=== PATIENT | female | born 1955 | race African-American/Black ===

== ENCOUNTER 2019-08-08 16:41 | Inpatient (IN) ==
[2019-08-08] MEDS ORDERED: NS 1,000 ML IV ONE (16:55)
[2019-08-08] MEDS ORDERED: D50W SYRINGE IV PRN (16:55)
[2019-08-08 17:22] LABS: ALLEN TEST YES; BE 1.5 mmoll (-3.0-3.0); BLOOD TYPE ARTERIAL; METHB 1.3 % (0.0-1.5); O2(CT) 17.7 mL/dL (15.0-23.0); O2HB 93.3 % (95.0-99.0); PCO2(98.6) 43 mmHg (35-45); PO2(98.6) 70 mmHg (60-100); SAMPLE BLOOD; SAO2 96.6 % (95.0-100.0); THB 13.5 g/dL (11.5-17.4)
[2019-08-08 17:24] LABS: MODALITY ROOM AIR
[2019-08-08 17:32] LABS: HEMATOCRIT 38.1 % (37.0-47.0); HEMOGLOBIN 12.6 g/dL (12.0-16.0); MCH 26.9 PG (27-31); MCHC 33.1 g/dL (33-37); MCV 81.2 FL (81-99); MPV 8.7 FL (7.4-10.4); RBC 4.69 XMIL (4.2-5.4); RDW 13.6 % (11.5-14.5); WBC 7.46 X1000 (4.8-10.8)
[2019-08-08] MEDS: NS 1,000 ML IV SCH ×3 (17:39→22:54)
[2019-08-08 17:52] LABS: ACETONE SERUM NEGATIVE (NEGATIVE)
[2019-08-08 18:08] LABS: URINE SOURCE CLEAN CATCH
[2019-08-08 18:09] LABS: AGAP 14; ALB/GLOB RATIO 1.4; ALBUMIN 4.3 g/dL (3.5-5.0); ALKALINE PHOSPHATASE 86 U/L (32-104); BUN 27 mg/dL (8-22); CALCIUM 10.1 mg/dL (8.8-10.2); CHLORIDE 90 mmol/L (98-107); CK PROFILE 175 U/L (24-173); COSMO 294; CREATININE 1.6 mg/dL (0.5-0.9); ESTIMATED GFR 39; GOT 16 U/L (10-30); GPT 16 U/L (10-36); MAGNESIUM 1.7 mg/dL (1.5-2.7); PHOSPHORUS 3.7 mg/dL (2.7-4.5); POTASSIUM 4.2 mmol/L (3.5-5.1); SODIUM 129 mmol/L (136-145); TCO2 25 mmol/L (25-35); TOTAL BILIRUBIN 0.46 mg/dL (0.20-1.00); TOTAL PROTEIN 7.4 g/dL (6.3-8.3)
[2019-08-08 18:10] LABS: GLUCOSE 647 mg/dL (70-104)
[2019-08-08 18:14] LABS: BILIRUBIN URINE NEGATIVE (NEGATIVE); BLOOD URINE NEGATIVE (NEGATIVE); COLOR STRAW; GLUCOSE URINE >1000 mg/dL (NEGATIVE); KETONE URINE NEGATIVE (NEGATIVE); LEUKOCYTES URINE NEGATIVE (NEGATIVE); NITRITE URINE NEGATIVE (NEGATIVE); PH URINE 6.5; PROTEIN URINE TRACE mg/dL (NEGATIVE); SP GRAVITY URINE 1.018; TURBIDITY URINE CLEAR (CLEAR); UR EPITHELIAL CELLS <10 /HPF (<10); URINE BACTERIA NEGATIVE /HPF; URINE RBC <10 /HPF (<10); URINE WBC <10 /HPF (<10); UROBILINOGEN URINE NORMAL (NORMAL)
[2019-08-08] MEDS ORDERED: HUMULIN R IV ONE ×3 (18:14→23:45)
--- NOTE | 2019-08-08 18:16 | Diag Imaging Result Doc PS360 ---
EXAM: CHEST-2 VIEWS 08/08/2019 HISTORY: ams, poss dka TECHNIQUE: AP and lateral chest COMMENT: There is cardiomegaly and increased pulmonary vascularity. There is obscuration of the retrocardiac portion of the left lower lobe. These findings were also present on 08/07/2019. IMPRESSION: Cardiomegaly. Atelectasis versus pneumonia left lower lobe. Electronically signed by Jan Blanco 08/08/2019 6:14 PM
[2019-08-08] MEDS ORDERED: CATAPRES PO ONE (18:23)
[2019-08-08] MEDS ORDERED: ROCEPHIN 1 GM in NS 50 ML IV ONE (18:24)
[2019-08-08 18:42] LABS: CK INDEX 0.7 (0.0-2.5); CK-MB 1.15 ng/mL (0.0-5.0)
[2019-08-08 18:44] LABS: UR AMPHETAMINES QUAL NONE DETECTED (NONE DETECT); UR BARBITUATES QUAL NONE DETECTED (NONE DETECT); UR BENZODIAZEPIN QUAL NONE DETECTED (NONE DETECT); UR CANNABINOIDS QUAL NONE DETECTED (NONE DETECT); UR COCAINE QUAL NONE DETECTED (NONE DETECT); UR METHADONE QUAL NONE DETECTED (NONE DETECT); UR OPIATES QUAL NONE DETECTED (NONE DETECT); UR OXYCODONE QUAL NONE DETECTED (NONE DETECT); UR PCP QUAL NONE DETECTED (NONE DETECT)
--- NOTE | 2019-08-08 19:19 | PROVIDER DOCUMENTATION ---
This chart was entered by Miracle Bermeo Scribe, acting as scribe for Igor Bronson CRNP. HPI-General Adult - General Chief Complaint: High Blood Sugar Stated Complaint: AMS Time Seen by Provider: 08/08/19 16:54 Source: family Allergies/Adverse Reactions: Patient Allergies Allergy/AdvReac Type Severity Reaction Status Date / Time morphine Allergy Unknown Verified 08/08/19 16:57 Penicillins Allergy HIVES Verified 08/08/19 16:57 amoxicillin AdvReac RASH Verified 08/08/19 16:57 Home Medications: Home Medication List Medication Instructions Recorded Confirmed Last Taken Type Albuterol Sulfate [Proair Hfa] 8.5 gm IH DAILY 03/25/14 08/08/19 1 Week Ago History ~08/01/19 Cholecalciferol (Vit D3) [Vitamin 5,000 unit PO DAILY 08/26/17 08/08/19 1 Week Ago History D] ~08/01/19 Febuxostat [Uloric] 40 mg PO DAILY 08/26/17 08/08/19 1 Week Ago History ~08/01/19 Gabapentin E.r. [Gralise] 300 mg PO DAILY 08/26/17 08/08/19 1 Week Ago History ~08/01/19 Glimepiride 2 mg PO DAILY 08/26/17 08/08/19 07/31/19 History Losartan/Hydrochlorothiazide 1 each PO DAILY 08/26/17 08/08/19 07/31/19 History [Losartan-Hctz 100-25 mg Tab] ROSUVAstatin [Crestor] 20 mg PO QHS 08/26/17 08/08/19 1 Day Ago History ~08/07/19 Amlodipine [Norvasc] 5 mg PO BID #60 tab 08/29/17 08/08/19 08/08/19 Rx Carvedilol [Coreg] 6.25 mg PO BID #0 08/29/17 08/08/19 08/08/19 Rx Ergocalciferol (Vitamin D2) 50,000 unit PO Q7D #5 cap 08/29/17 08/08/19 1 Week Ago Rx [Vitamin D] ~08/01/19 Losartan/Hctz [Hyzaar 100/12.5 mg 1 ea PO DAILY #1 tab 08/07/19 08/08/19 1 Week Ago Rx Tab] ~08/01/19 Insulin Glargine,Hum.rec.anlog 20 unit SQ QHS 08/08/19 08/08/19 Unknown History [Keila Dickerson] - History of Present Illness -Gen Adult Nature of Presenting Problems: Patient is a 64 year old female who presents to the ED via EMS with elevated blood sugar. EMS states patient's blood sugar was greater than 500. Patient's family states patient has not been taking her insulin. Family reports patient started to be drowsy and confused around 1100 today. Pt and family very poor historians. Location of Pain/Injury: reports: none Quality of Pain: reports: none Severity: reports: mild Onset/Duration: reports: this afternoon (1100) Timing: reports: still present Context/Activities at Onset: reports: light activity Associated Symptoms: reports: other (drowsy and confused) Similar Symptoms Previously?: No Recently seen or treated by another doctor?: Yes - Diabetes Related Context Context: reports: high blood sugar (greater than 500) Review of Systems - Adult - REVIEW OF SYSTEMS - ADULT ROS:: ROS per family Constitutional: reports: no symptoms reported Eyes: reports: no symptoms reported Ears, Nose, Mouth & Throat: reports: no symptoms reported Cardiovascular: reports: no symptoms reported Respiratory: reports: no symptoms reported Gastrointestinal: reports: no symptoms reported Genitourinary: reports: no symptoms reported Musculoskeletal: reports: no symptoms reported Integumentary: reports: no symptoms reported Neurological: reports: see HPI, other (drowsy and confused). denies: dizziness/vertigo, headache/migraines Psychiatric: reports: no symptoms reported Endocrine: reports: no symptoms reported Hematologic/Lymphatic: reports: no symptoms reported Allergic/Immunologic: reports: no symptoms reported All Other Systems: Reviewed and Negative Past History - Adult - PAST MEDICAL HISTORY-ADULT Review of Records: reports: Old Records Reviewed, Social history reviewed & non- contributory. Major Childhood Illnesses: reports: denies history Cardiovascular: reports: CHF, HTN, hyperlipidemia Respiratory: reports: asthma, sleep apnea, other (sleep apnea) Gastrointestinal: reports: denies history Obstetrical/Gynecological: reports: denies history Genitourinary: reports: denies history Musculoskeletal: reports: denies history Neurological: reports: denies history Endocrine/Immune: reports: Diabetes Other Conditions: reports: denies history - PRIOR SURGERIES/PROCEDURES Surgical/Procedure History: reports: - IMMUNIZATION STATUS Childhood Immunizations: See Nurse Assessment Flu Vaccine: See Nurse Assessment - FAMILY HISTORY Family History: reviewed, not pertinent - SOCIAL HISTORY Smoking: denies Substance Use: denies Living Situation: family Physical Exam-General - PHYSICAL EXAM-ADULT Initial Vital Signs Reviewed: Yes - CONSTITUTIONAL General Appearance: alert, no apparent distress, obese, slow to respond. negative: obtunded - EYES Eyes: PERRL/EOMI - HEAD, EARS, NOSE, MOUTH & THROAT HENMT: normocephalic/atraumatic, moist mucous membranes. negative: angioedema - NECK Neck: full range of motion, supple, normal inspection - RESPIRATORY Respiratory: chest non-tender, lungs clear, normal breath sounds, no respiratory distress, no accessory muscle use. negative: crackles, stridor, wheezing - CARDIOVASCULAR Cardiovascular: normal peripheral pulses, regular rate, rhythm. negative: tachycardia - GASTROINTESTINAL (ABDOMEN) Abdominal Exam: normal bowel sounds, non tender, soft. negative: guarding, rebound - MUSCULOSKELETAL Extremity: normal inspection. negative: deformity, erythema, swelling - SKIN Integumentary: normal color, normal turgor, warm/dry. negative: cyanosis, ecchymosis, jaundice - PSYCHIATRIC Psych/Mental Status: other (slow to respond). negative: anxious, paranoid Progress - PLAN OF CARE/RESULTS Progress/Plan/Lab Results: Vital Signs - 8 hr 08/08/19 16:48 Temperature 99.3 F Pulse Rate 78 Respiratory Rate 16 Blood Pressure 190/100 O2 Sat by Pulse Oximetry 96 Laboratory Results - last 24 hr 08/08/19 16:53 POC Glucose 500 H D Orders Category Date Time Status Cardiac Monitoring DIRECTED Care 08/08/19 16:55 Active FSBS/Accucheck Result Q15M Care 08/08/19 16:58 Active FSBS/Accucheck Result Q1H Care 08/08/19 16:55 Active Hypoglycemia/FSBS <50 or Range of 50-70 PRN Care 08/08/19 16:58 Active Notify Physician ORDERED Care 08/08/19 16:58 Active Saline Loc DIRECTED Care 08/08/19 16:58 Active Saline Loc NOW Care 08/08/19 16:55 Active Vital Signs Order Q1H Care 08/08/19 16:55 Active CHEST-2 VIEWS [RAD] Stat Exams 08/08/19 17:08 Ordered ABG [RESP] Routine Lab 08/08/19 16:55 Ordered ACETONE SERUM [CHEM] Stat Lab 08/08/19 16:55 Uncollected CBC WITH NO DIFF [HEME] Stat Lab 08/08/19 16:55 Uncollected CK PROFILE [SP CHEM] Stat Lab 08/08/19 16:55 Uncollected COMPREHENSIVE METABOLIC PANEL [CHEM] Stat Lab 08/08/19 16:55 Uncollected LACTATE, PLASMA [CHEM] Stat Lab 08/08/19 16:55 Uncollected MAGNESIUM [CHEM] Stat Lab 08/08/19 16:55 Uncollected PHOSPHORUS [CHEM] Stat Lab 08/08/19 16:55 Uncollected TROPONIN T Stat Lab 08/08/19 16:55 Uncollected URINALYSIS [URINALYSIS] Stat Lab 08/08/19 16:55 Uncollected URINE DRUG SCREEN Stat Lab 08/08/19 16:55 Uncollected 0.9% Sodium Chloride Inj [Ns] 1,000 ml Med 08/08/19 17:00 Active IV 500 mls/hr 0.9% Sodium Chloride Inj [Ns] 1,000 ml Med 08/08/19 16:55 Active IV 999 mls/hr Dextrose 50% Syringe [D50w Syringe] Med 08/08/19 16:55 Active 50 ml IV PRN PRN Hypoglycemia Stat Oth 08/08/19 16:55 Ordered EKG [EKG] Routine Ther 08/08/19 16:55 Ordered corrected sodium 137 Result Diagrams: 08/08/19 17:20 08/08/19 17:20 - REASSESSMENT Reassessment #1 Time Reassessed: 18:15 (discussed pt with Dr Bowles, agrees with tx plan thus far and suggests giving 10 units IV insulin and admit to hospitalist) Reassessment #2 Time Reassessed: 18:31 (updated pt and family of need for admission. ) - CONSULTS/PCP/HOSPITALIST Notification #1 *Consult/PCP/Hospitalist*: Dr Benjamin Time Discussed: 18:23 Consult Disposition: Will see in ED, Admit Departure - Departure Date of Disposition Decision: 08/08/19 Time of Disposition Decision: 18:25 DIAGNOSIS: Hyperglycemia, Hypertensive urgency, Noncompliance Altered mental state Qualifiers: Altered mental status type: unspecified Qualified Code(s): R41.82 - Altered mental status, unspecified Disposition: ADMITTED INPATIENT 09 Certified Medical Emergency: Emergent Condition: Fair Referrals and Follow-Ups: None,PCP [Primary Care Provider] - - Critical Care Note This patient required my direct & personal management of CC.: No Attestation - Physician/ THU Attestation Patient care was provided by Advanced Practice Provider:: Yes Advanced Practice Provider:: Igor Bronson Advanced Practice Provider documentation review:: The Mid-level provider documentation, treatment plan and medical decision making was reviewed by the physician who agrees with all treatment and medical decision making by the MLP. The physician spent face to face time with patient:: No Advanced Practice Provider documentation review:: Supervising physician onsite and consulted in the evaluation and care of this patient. The physician did not have a face to face encounter with the patient. This chart was documented by the indicated scribe, (Miracle Bermeo Scribe) and accurately reflects the services I performed and decisions made by me, Igor Bronson CRNP, as attested by the provider's signature.
[2019-08-08] MEDS ORDERED: POTASSIUM CHLORIDE 10% LIQUID PO ONE (19:30)
[2019-08-08] MEDS ORDERED: MAGNESIUM SULFATE 2 GM/S.W.I. 2 GM/50 ML IVPB IV ONE (20:00)
[2019-08-08 20:04] LABS: URINE SOURCE CATH
[2019-08-08 20:06] LABS: BILIRUBIN URINE NEGATIVE (NEGATIVE); BLOOD URINE NEGATIVE (NEGATIVE); COLOR STRAW; GLUCOSE URINE >1000 mg/dL (NEGATIVE); KETONE URINE NEGATIVE (NEGATIVE); LEUKOCYTES URINE NEGATIVE (NEGATIVE); NITRITE URINE NEGATIVE (NEGATIVE); PROTEIN URINE TRACE mg/dL (NEGATIVE); SP GRAVITY URINE 1.014; TURBIDITY URINE CLEAR (CLEAR); UROBILINOGEN URINE NORMAL (NORMAL)
[2019-08-08 20:07] LABS: UR EPITHELIAL CELLS <10 /HPF (<10); URINE BACTERIA NEGATIVE /HPF; URINE RBC <10 /HPF (<10); URINE WBC <10 /HPF (<10)
[2019-08-08] MEDS: LANTUS INSULIN SUBQ SCH (21:00)
[2019-08-08] MEDS: LEVAQUIN 500 MG/D5W 500 MG/100 ML IVPB IV SCH (21:21)
[2019-08-08] MEDS: HEPARIN SUBQ SCH (21:26)
[2019-08-08] MEDS: NORVASC PO SCH (21:27)
[2019-08-08] MEDS: HUMULIN R SUBQ SCH (21:42)
[2019-08-08] MEDS: APRESOLINE IV PRN (21:43)
--- NOTE | 2019-08-08 22:53 | HISTORY AND PHYSICAL ---
CHIEF COMPLAINT: Encephalopathy, right upper extremity weakness. HISTORY OF PRESENT ILLNESS: This is a 64-year-old female with a past medical history of uncontrolled hypertension, dyslipidemia, uncontrolled type 2 diabetes, medical noncompliance, morbid obesity. She presented to the emergency department yesterday with some signs of encephalopathy and right upper extremity weakness and some slurred speech. All the history has been taken from the , who is at the bedside. The patient is encephalopathic, and she is not able to provide any information. As per the , everything started 2 days ago during the night. Apparently, she started having some somnolence, slurred speech and right upper extremity weakness that resolved overnight. They decided to come here to the emergency department yesterday and apparently she was evaluated due to headache. The blood pressure was elevated, as per the report, at 235/138. She received treatment. Apparently she was feeling better, and they discharged this patient home. As per the , she started having this kind of symptoms today again, so they decided to bring the patient over here. Yesterday also they did a CT scan that did not show any acute problem. Her blood pressure today is still elevated, mostly in the 200s. Heart rate is within normal limits, as well as the oxygen saturation. Laboratories showed an acute kidney injury and elevated glucose level at 647. As per the , she ran out of her medications, and she was unable to afford them again. I had a tracey conversation with the about her medications. I told the that she can basically if she does not take her medications as prescribed, and he seems to understand. The first set of troponins has been negative, and I will check on that again twice. This patient is encephalopathic. I will send this patient to the intensive care unit. She is not following commands completely. It looks like she has a little bit of right upper extremity weakness. She received some clonidine in the emergency department, I will continue with her home medications. She will receive some fluids and sliding scale insulin. X-ray showed an atelectasis versus pneumonia at the level of the left lower lobe. She received a dose of ceftriaxone. Apparently, she is allergic to penicillin, so I will change it to levofloxacin. I will monitor this patient closely. REVIEW OF SYSTEMS: Unable able to obtain due to this patient's mental status changes. FAMILY HISTORY: Noncontributory. PAST MEDICAL HISTORY: Uncontrolled diabetes, uncontrolled hypertension, obesity, hypercholesterolemia and medical noncompliance. PAST SURGICAL HISTORY: Apparently none, as per the . SOCIAL HISTORY: None pertinent. PHYSICAL EXAMINATION: VITAL SIGNS: Temperature 99.3, pulse 81, respiratory rate 20, blood pressure 107/109, oxygen saturation 93% on room air. HEENT: Head normocephalic, no trauma. PERRLA. NECK: Supple. No JVD. No masses. Central trachea. CHEST: Decreased breath sounds globally mostly at the bases, with some crepitus on the left side. ABDOMEN: Soft, obese, protuberant. Nontender, nondistended. No hepatosplenomegaly. EXTREMITIES: No edema, clubbing or cyanosis. NEUROLOGICAL: The patient is basically lethargic. She is able to open her eyes, and she is able to say her name but no more than that. She is not following commands constantly. LABORATORY: WBCs 7.4, hemoglobin 12.6, hematocrit 38.1, platelets 306. Sodium 129, potassium 4.2, chloride 90, bicarbonate 25, BUN 27, creatinine 1.6, glucose 647, calcium 10.1, magnesium 1.7. Troponins negative x1. CK level 175. Negative acetone level. ASSESSMENT AND PLAN: 1. Metabolic encephalopathy. Probably this is multifactorial due to elevated blood sugar, hypertension inclusive. It could be related to a stroke. We need to rule out also an infection. She does have some atelectasis and/or pneumonia at the level of the left lower lung. She has been placed on antibiotics. We will continue to monitor the patient in the ICU. 2. Uncontrolled type 2 diabetes with no diabetes with no diabetic ketoacidosis. This patient will be transferred to the unit. We will check her blood sugar every 2 hours. She has been placed on a sliding scale and IV fluids. We will monitor this closely. 3. Uncontrolled hypertension. She received a dose of clonidine recently in the emergency department. I will put her on hydralazine and home medications. We will monitor this patient in the ICU. 4. Acute kidney injury on chronic kidney disease. It looks like her baseline creatinine is between 1 to 1.2 since 2013. She has an acute on chronic kidney disease. She will receive some IV fluids, and we will place a Gauthier catheter and monitor. 5. Possible left upper extremity weakness. It is really hard to evaluate this patient at this moment because of her encephalopathy, I will ask for a CT scan, and I will reevaluate this patient in the morning. If she has really a right upper extremity weakness or slurred speech, I will get an MRI to rule out stroke. 6. Dyslipidemia. Continue with statins. 7. Morbid obesity. Aware. Her body mass index is around 42.1. 8. Sleep apnea. Apparently this patient uses a CPAP machine at home. I have requested the , apparently this patient uses a CPAP machine at home. I have requested the family to bring this machine over. 9. Further recommendations pending hospital course. cc: Cristiano Carrasco MD
[2019-08-09] MEDS: COREG PO SCH ×3 (01:11→20:32)
[2019-08-09] MEDS: CRESTOR PO SCH ×2 (01:11→20:32)
[2019-08-09] MEDS: NORVASC PO SCH ×3 (01:11→20:32)
[2019-08-09] MEDS: TYLENOL PO PRN (01:15)
[2019-08-09] MEDS ORDERED: MAGNESIUM SULFATE 2 GM/S.W.I. 2 GM/50 ML IVPB IV ONE ×2 (04:00→07:27)
[2019-08-09 06:08] LABS: BASO# 0.02 X1000 (0.0-0.2); BASO% 0.2 % (0.0-0.8); HEMATOCRIT 35.6 % (37.0-47.0); HEMOGLOBIN 11.7 g/dL (12.0-16.0); IMM GRAN# 0.06 X1000 (0.0-0.04); IMM GRAN% 0.6 % (0.0-0.5); LYMPH# 3.14 X1000 (1.2-3.4); LYMPH% 32.2 % (20.5-51.1); MCH 26.8 PG (27-31); MCHC 32.9 g/dL (33-37); MCV 81.5 FL (81-99); MONO# 0.89 X1000 (0.11-0.59); MONO% 9.1 % (1.7-9.3); MPV 8.9 FL (7.4-10.4); NEUT# 5.55 X1000 (1.4-6.5); NEUT% 56.9 % (42.2-75.2); PLT 330 X1000 (130-400); RBC 4.37 XMIL (4.2-5.4); RDW 13.6 % (11.5-14.5); WBC 9.76 X1000 (4.8-10.8)
[2019-08-09 06:48] LABS: ALB/GLOB RATIO 1.2; ALBUMIN 3.6 g/dL (3.5-5.0); CALCIUM 8.7 mg/dL (8.8-10.2); CREATININE 1.3 mg/dL (0.5-0.9); MAGNESIUM 1.5 mg/dL (1.5-2.7); POTASSIUM 3.4 mmol/L (3.5-5.1); TOTAL BILIRUBIN 0.31 mg/dL (0.20-1.00); TOTAL PROTEIN 6.6 g/dL (6.3-8.3)
--- NOTE | 2019-08-09 07:18 | Diag Imaging Result Doc PS360 ---
EXAM: CT HEAD W/O CONTRAST INDICATION: encephalopathy TECHNIQUE: This exam was performed using automated exposure control, adjustment of mA or kV according to patient size, and/or use of iterative reconstruction technique. COMPARISON: 08/07/2019 FINDINGS: There is suggestion of minimal white matter microangiopathy, stable. There is no definite acute infarct given the limited sensitivity of CT versus MRI. There is no discrete intracranial mass, mass effect, or intracranial hemorrhage. The surrounding soft tissues and bony structures are essentially unremarkable. IMPRESSION: Stable minimal chronic appearing white matter changes. No definite acute intracranial pathology by CT. Electronically signed by Arun Rooney 08/09/2019 7:16 AM
[2019-08-09] MEDS ORDERED: KLOR-CON PO ONE (07:28)
--- NOTE | 2019-08-09 07:53 | PROGRESS NOTE ---
DATE: 08/09/2019 SUBJECTIVE: This patient seems to be remarkably better today. She is alert and oriented x3, and she is following commands. As per the patient she stopped taking her medications long time ago and that is why probably this patient's blood sugar and blood pressure were elevated. Troponin has been negative x3. Blood sugar seems to be much better as well as the blood pressure. Her pseudo hyponatremia improved. Potassium and magnesium level are low and I will replace it. She has a good urine output and her kidney function is close to baseline. BUN improved completely, creatinine is 1.3 down from 1.6. OBJECTIVE: Vital Signs: Temperature 98.3 degrees, pulse 81, respiratory rate 17, blood pressure 127/75, oxygen saturation 97% on room air. HEENT: Head normocephalic. No trauma. PERRLA. Neck: Supple. No JVD. No masses. Central trachea. Chest: Clear to auscultation. No wheezing. No rales. Abdomen: Soft, nontender, nondistended. No hepatosplenomegaly. Extremities: No edema, no clubbing, no cyanosis. Neurological: The patient is alert. She is oriented x3. She is following commands. She does have generalized weakness. LABORATORY: WBC 9.7, hemoglobin 11.7, hematocrit 35.6, platelets 333,000. Sodium 136, potassium 3.4, chloride 100, bicarbonate 24, BUN 19, creatinine 1.3, glucose 211, calcium 8.7. Troponins negative x3. TSH 2.6. Albumin 3.6. ASSESSMENT AND PLAN: 1. Metabolic encephalopathy, likely multifactorial, improved. She does not have any signs of stroke. CT scan seems to be negative. No acute intracranial pathology. She does have generalized weakness. 2. Uncontrolled type 2 diabetes,blood sugar seems to be much better. I will continue with same management for now. 3. Hypertensive emergency. Blood pressure normalized now. Continue with same management. Continue home medications which were stopped some time ago. 4. Acute kidney injury on chronic kidney disease. It looks like now she is close to her baseline. I will remove the Gauthier catheter now. She is having good urine output. 5. Possible left upper extremity weakness. She does not have any focal weakness at this moment. She does have generalized weakness, CT scan of the head is negative. 6. Dyslipidemia. Continue with statins. 7. Morbid obesity aware. Her body mass index is 42.9. 8. Sleep apnea. We will continue with the CPAP machine. This patient is doing much better. Probably all these acute problems were related to her noncompliance with the medications. I will remove the Gauthier catheter. I will put this patient on a diet. I will continue with sliding scale insulin and pattern of blood sugar. I will transfer this patient to the medical floor. I will get a hemoglobin A1c. cc: Cristiano Carrasco MD
[2019-08-09] MEDS: HUMULIN R SUBQ SCH ×4 (08:12→20:32)
[2019-08-09] MEDS: ULORIC PO SCH (08:14)
[2019-08-09] MEDS: HYZAAR 100/12.5 MG TAB PO SCH (08:14)
[2019-08-09] MEDS: HEPARIN SUBQ SCH ×2 (08:14→20:32)
[2019-08-09] MEDS: NS 1,000 ML IV SCH (13:52)
[2019-08-09] MEDS: LEVAQUIN 500 MG/D5W 500 MG/100 ML IVPB IV SCH (18:40)
[2019-08-09] MEDS: LANTUS INSULIN SUBQ SCH (20:33)
[2019-08-09] MEDS ORDERED: HUMULIN R SUBQ ONE (21:17)
--- NOTE | 2019-08-09 21:23 | ECHO REPORT ---
ORDER DATE: 08/08/2019 MEASUREMENTS: Septal thickness 1.7, left ventricular internal diameter diastole 3.8, left ventricular internal diameter in systole 2.8, aortic root 3.2, left atrium 3.4. SUMMARY: 1. Technically difficult study due to limited acoustic window quality. 2. Aortic valve is without evidence of structural abnormality and opens adequately on 2- dimensional images. Peak gradient across the aortic valve is less than 10 mmHg. Mitral and tricuspid valves are without evidence of structural abnormality while pulmonic valve is not well demonstrated. There is mild tricuspid regurgitation. The estimated systolic PA pressure by Doppler is 30 mmHg. Aortic root is normal in size. 3. Normal left chamber size with moderate concentric left hypertrophy is demonstrated. Estimated left ejection fraction approximately 40 to 45% in the setting of mild global hypokinesis. Doppler suggests grade 1 left ventricular diastolic dysfunction. Left atrium, right atrium, right ventricle are normal size with grossly preserved right ventricular systolic function. 4. No pericardial effusion. 5. Appearance of inferior vena cava suggests normal central venous pressure. CONCLUSIONS: 1. Technically difficult study. 2. Mild tricuspid regurgitation with normal systolic PA pressure suggested by Doppler. 3. Moderate concentric left hypertrophy with estimated left ventricular ejection fraction of 40 to 45 percent. 4. Grade 1 left ventricular diastolic dysfunction suggested. cc: MD Cristiano Barnett MD
[2019-08-10] MEDS: TYLENOL PO PRN ×2 (01:03→18:06)
[2019-08-10] MEDS: NS 1,000 ML IV SCH (04:35)
[2019-08-10 06:07] LABS: HEMOGLOBIN A1C 10.5 % (4.8-6.0)
[2019-08-10] MEDS: HUMULIN R SUBQ SCH ×4 (07:15→22:32)
[2019-08-10] MEDS: HEPARIN SUBQ SCH ×2 (07:59→22:33)
[2019-08-10] MEDS: HYZAAR 100/12.5 MG TAB PO SCH (07:59)
[2019-08-10] MEDS: NORVASC PO SCH ×2 (07:59→22:30)
[2019-08-10] MEDS: COREG PO SCH ×2 (07:59→22:31)
[2019-08-10] MEDS: ULORIC PO SCH (07:59)
--- NOTE | 2019-08-10 08:49 | PROGRESS NOTE ---
DATE: 08/10/2019 SUBJECTIVE: The patient is feeling better. She does have generalized weakness. She is tolerating p.o., so I will stop the IV fluids. I will put her back on the rest of her medications that she has been taking at home. She does have a systolic heart failure. She is on beta blockers and also I will continue with her losartan. OBJECTIVE: Vital Signs: Temperature 97.5 degrees, pulse 69, respiratory rate 14, blood pressure on the monitor 154/87, oxygen saturation 97% on room air. HEENT: Head normocephalic. No trauma. PERRLA. Neck: Supple. No JVD. No masses. Central trachea. Chest: Clear to auscultation. No wheezing. Some crepitus at the bases. Abdomen: Soft, nontender, nondistended. No hepatosplenomegaly. Extremities: No edema, no clubbing, no cyanosis. Neurological: The patient is alert. She is oriented x3. She does have generalized weakness. She is following commands. LABORATORY: Glucose 130. Hemoglobin A1c 10.5. ASSESSMENT AND PLAN: 1. Metabolic encephalopathy, likely multifactorial, improved. CT scan negative. 2. Uncontrolled type 2 diabetes, blood sugar seems to be better controlled. Continue with same management for now. Hemoglobin A1c is 10.5. 3. Acute kidney injury on chronic kidney disease. She is having a good urine output. I will put this patient back on her home medications. 4. Possible left upper extremity weakness, resolved. 5. Dyslipidemia. Continue with statins. 6. Morbid obesity with a body mass index of 42.9, aware. 7. Severe sleep apnea. Continue with the CPAP machine. DISPOSITION: The patient is feeling better. I offered rehab for her but she refused that possibility. She wants to go home. I have requested an evaluation by the social media intern to see if they can help with her medication, which seems to be the main problem. I will discharge this patient tomorrow if she is doing fine. cc: Cristiano Carrasco MD
[2019-08-10] MEDS ORDERED: VITAMIN D PO SCH ×2 (09:00)
[2019-08-10] MEDS ORDERED: HYZAAR 50/12.5 MG PO SCH (09:00)
[2019-08-10] MEDS: GRALISE PO SCH (10:49)
[2019-08-10] MEDS: AMARYL PO SCH (10:49)
[2019-08-10] MEDS: CRESTOR PO SCH (22:30)
[2019-08-10] MEDS: LEVAQUIN 500 MG/D5W 500 MG/100 ML IVPB IV SCH (22:36)
[2019-08-10] MEDS: LANTUS INSULIN SUBQ SCH (22:41)
[2019-08-11] MEDS: APRESOLINE IV PRN (02:55)
[2019-08-11] MEDS: TYLENOL PO PRN ×2 (03:08→14:26)
[2019-08-11] MEDS: HUMULIN R SUBQ SCH ×4 (06:16→21:49)
[2019-08-11] MEDS: ZOFRAN IV PRN ×3 (06:30→21:47)
[2019-08-11 07:03] LABS: BASO# 0.03 X1000 (0.0-0.2); BASO% 0.5 % (0.0-0.8); EOS# 0.12 X1000 (0.0-0.7); HEMATOCRIT 41.2 % (37.0-47.0); HEMOGLOBIN 13.5 g/dL (12.0-16.0); IMM GRAN# 0.04 X1000 (0.0-0.04); IMM GRAN% 0.7 % (0.0-0.5); LYMPH# 1.69 X1000 (1.2-3.4); LYMPH% 27.7 % (20.5-51.1); MCH 26.9 PG (27-31); MCHC 32.8 g/dL (33-37); MCV 82.2 FL (81-99); MONO% 8.2 % (1.7-9.3); MPV 8.7 FL (7.4-10.4); NEUT# 3.73 X1000 (1.4-6.5); NEUT% 60.9 % (42.2-75.2); PLT 313 X1000 (130-400); RBC 5.01 XMIL (4.2-5.4); RDW 13.9 % (11.5-14.5); WBC 6.11 X1000 (4.8-10.8)
[2019-08-11 07:22] LABS: AGAP 15; ALB/GLOB RATIO 1.1; ALBUMIN 3.8 g/dL (3.5-5.0); ALKALINE PHOSPHATASE 75 U/L (32-104); BUN 13 mg/dL (8-22); CALCIUM 9.8 mg/dL (8.8-10.2); CHLORIDE 100 mmol/L (98-107); COSMO 285; ESTIMATED GFR > 60; GLUCOSE 266 mg/dL (70-104); GOT 20 U/L (10-30); GPT 13 U/L (10-36); POTASSIUM 3.6 mmol/L (3.5-5.1); SODIUM 138 mmol/L (136-145); TCO2 23 mmol/L (25-35); TOTAL BILIRUBIN 0.34 mg/dL (0.20-1.00); TOTAL PROTEIN 7.3 g/dL (6.3-8.3)
--- NOTE | 2019-08-11 09:05 | PROGRESS NOTE ---
DATE: 08/11/2019 SUBJECTIVE: This patient is complaining of nausea and vomiting today, her blood pressure has been now elevated since yesterday afternoon. It has been mostly in the 150s. I will add hydralazine to her medications to see how she does. Also, I will increase the dose of the insulin, Lantus. OBJECTIVE: Vital Signs: Temperature 98.2 degrees, pulse 95, respiratory rate 18, blood pressure 153/97, oxygen saturation 96 on room air. HEENT: Head normocephalic. No trauma. PERRLA. Neck: Supple. No JVD. No masses. Central trachea. Chest: Clear to auscultation. No wheezing. No rales. Abdomen: Soft, nontender, nondistended. No hepatosplenomegaly. Extremities: No edema, no clubbing, no cyanosis. Neurologic: The patient is alert. She is oriented x3. No focal deficits. She is complaining of headache. LABORATORY: WBC 6.1, hemoglobin 13.5, hematocrit 41.2, platelets 313,000. Sodium 138, potassium 3.6, chloride 100, bicarbonate 23, BUN 13, creatinine 1, glucose 266. Calcium 9.8. ASSESSMENT AND PLAN: 1. Metabolic encephalopathy, resolved, likely multifactorial. CT scan of the head negative. 2. Uncontrolled type 2 diabetes with a hemoglobin A1c of 10.5, I have increased the dose of Lantus from 20 to 30 and let's see how she does. 3. Acute kidney injury on chronic kidney disease, resolved. She is having a good urine output. I have placed this patient back on her home medications. 4. Possible left upper extremity weakness, resolved. 5. Dyslipidemia. Continue with statins. 6. Hypertensive urgency, resolved. 7. She came in encephalopathic and also with acute on chronic kidney disease. Blood pressure seems to be better, but still a little bit elevated. I will add hydralazine to her medications. 8. Severe sleep apnea. Continue with CPAP machine. cc: Cristiano Carrasco MD
[2019-08-11] MEDS ORDERED: PNEUMOVAX 23 IM ONE (10:00)
[2019-08-11] MEDS: AMARYL PO SCH (10:25)
[2019-08-11] MEDS: GRALISE PO SCH (10:25)
[2019-08-11] MEDS: HYZAAR 100/12.5 MG TAB PO SCH (10:25)
[2019-08-11] MEDS: COREG PO SCH ×2 (10:25→21:48)
[2019-08-11] MEDS: HEPARIN SUBQ SCH ×2 (10:26→21:48)
[2019-08-11] MEDS: NORVASC PO SCH ×2 (10:26→21:48)
[2019-08-11] MEDS: APRESOLINE PO SCH ×3 (10:27→21:48)
[2019-08-11] MEDS: ULORIC PO SCH (10:27)
[2019-08-11] MEDS ORDERED: ULTRAM PO ONE (13:41)
[2019-08-11] MEDS: LEVAQUIN 500 MG/D5W 500 MG/100 ML IVPB IV SCH (17:53)
[2019-08-11] MEDS ORDERED: LANTUS INSULIN SUBQ SCH (21:00)
[2019-08-11] MEDS: CRESTOR PO SCH (21:48)
[2019-08-11] MEDS: LANTUS INSULIN SUBQ SCH (21:49)
[2019-08-12] MEDS: APRESOLINE PO SCH ×4 (05:21→23:21)
[2019-08-12 06:35] LABS: BASO# 0.02 X1000 (0.0-0.2); BASO% 0.3 % (0.0-0.8); EOS# 0.13 X1000 (0.0-0.7); HEMATOCRIT 42.4 % (37.0-47.0); HEMOGLOBIN 13.8 g/dL (12.0-16.0); IMM GRAN# 0.03 X1000 (0.0-0.04); IMM GRAN% 0.5 % (0.0-0.5); LYMPH# 1.89 X1000 (1.2-3.4); MCH 26.7 PG (27-31); MCHC 32.5 g/dL (33-37); MCV 82.2 FL (81-99); MONO# 0.61 X1000 (0.11-0.59); MONO% 9.4 % (1.7-9.3); MPV 8.6 FL (7.4-10.4); NEUT# 3.84 X1000 (1.4-6.5); NEUT% 58.8 % (42.2-75.2); PLT 323 X1000 (130-400); RBC 5.16 XMIL (4.2-5.4); RDW 14.1 % (11.5-14.5); WBC 6.52 X1000 (4.8-10.8)
[2019-08-12 06:59] LABS: CALCIUM 9.9 mg/dL (8.8-10.2); CREATININE 1.3 mg/dL (0.5-0.9); POTASSIUM 3.7 mmol/L (3.5-5.1)
[2019-08-12] MEDS: HUMULIN R SUBQ SCH ×4 (07:31→23:20)
[2019-08-12] MEDS: AMARYL PO SCH (10:00)
[2019-08-12] MEDS: GRALISE PO SCH (10:00)
[2019-08-12] MEDS: NORVASC PO SCH ×2 (10:00→23:21)
[2019-08-12] MEDS: COREG PO SCH ×2 (10:00→23:21)
[2019-08-12] MEDS: HYZAAR 100/12.5 MG TAB PO SCH (10:00)
[2019-08-12] MEDS: ULORIC PO SCH (10:00)
[2019-08-12] MEDS: HEPARIN SUBQ SCH ×2 (10:00→23:22)
[2019-08-12] MEDS: TYLENOL PO PRN (11:53)
--- NOTE | 2019-08-12 12:00 | PROGRESS NOTE ---
DATE: 08/12/2019 SUBJECTIVE: This patient is still complaining of some nausea, but she feels better compared with yesterday. I will continue with the same management for now. She seems to be getting better slowly. Blood culture and urine culture negative. Glucose level seems to be better today. PHYSICAL EXAMINATION: Vital signs: Temperature 98 degrees, pulse 77, respiratory rate 18, blood pressure 143/79, oxygen saturation 100% on room air HEENT: Head normocephalic, no trauma, PERRLA. Neck: Supple. No JVD. No masses. Central trachea. Chest: Clear to auscultation. No wheezing. No rales. Abdomen: Soft, nontender, nondistended. No hepatosplenomegaly. Extremities: No edema, no clubbing, no cyanosis. Neurological: The patient is alert, she is oriented. No focal deficits. LABORATORY: WBC 6.5, hemoglobin 13.8, hematocrit 42.4, platelets 223,000. Sodium 133, potassium 3.7, chloride 96, bicarbonate 23, BUN 16, creatinine 1.3, glucose 204, calcium 9.9. ASSESSMENT AND PLAN: 1. Metabolic encephalopathy, resolved, likely multifactorial. CT scan of the head negative. 2. Uncontrolled type 2 diabetes with a hemoglobin A1c of 10.5, continue with Lantus. 3. Acute kidney injury on chronic kidney disease, resolved. She is having good urine output. 4. Possible left upper extremity weakness, resolved. 5. Dyslipidemia. Continue with statins. 6. Hypertensive urgency, resolved. 7. She came in encephalopathic and also with acute on chronic kidney disease. Blood pressure seems to be better. I started hydralazine yesterday. We will continue to monitor. 8. Severe sleep apnea. Continue with the CPAP machine. cc: Cristiano Carrasco MD
[2019-08-12] MEDS: LEVAQUIN 500 MG/D5W 500 MG/100 ML IVPB IV SCH (17:44)
[2019-08-12] MEDS: LANTUS INSULIN SUBQ SCH (23:20)
[2019-08-12] MEDS: CRESTOR PO SCH (23:22)
[2019-08-13] MEDS: TYLENOL PO PRN ×3 (02:37→23:18)
[2019-08-13] MEDS: APRESOLINE PO SCH ×3 (04:37→22:58)
[2019-08-13] MEDS: HUMULIN R SUBQ SCH ×4 (06:51→22:57)
[2019-08-13 07:27] LABS: CALCIUM 9.4 mg/dL (8.8-10.2); CREATININE 1.6 mg/dL (0.5-0.9); POTASSIUM 3.9 mmol/L (3.5-5.1)
[2019-08-13] MEDS: ULORIC PO SCH (09:39)
[2019-08-13] MEDS: HEPARIN SUBQ SCH ×2 (09:39→22:58)
[2019-08-13] MEDS: AMARYL PO SCH (09:39)
[2019-08-13] MEDS: NORVASC PO SCH ×2 (09:39→22:58)
[2019-08-13] MEDS: GRALISE PO SCH (09:39)
[2019-08-13] MEDS: COREG PO SCH ×2 (09:39→22:58)
[2019-08-13] MEDS: HYZAAR 100/12.5 MG TAB PO SCH (09:39)
--- NOTE | 2019-08-13 16:57 | PROGRESS NOTE ---
DATE: 08/13/2019 SUBJECTIVE: This patient's is complaining today of headache and more generalized weakness, mild nausea. Blood pressure and blood sugar has been better controlled. Still a little bit above 200, and she received yesterday around 14 more units of insulin. I do believe it is safe to increase the dose of Lantus from 30 to 35 and we can check on her tomorrow. Also her kidney function has been increasing as well as the BUN. She has been on losartan/hydrochlorothiazide which I will hold for now. She does not have any edema at the level of the lower extremities, but she states that sometimes she does. We will need to put her back on NATHALIE inhibitors or arbs before discharge. Probably we can change it to a low dose since this patient has CHF with an ejection fraction of 40 to 45 percent. OBJECTIVE: Vital Signs: Temperature 98.1 degrees, pulse 81, respiratory rate 16, blood pressure 122/67, oxygen saturation 99 on room air. HEENT: Head normocephalic, no trauma. PERRLA. Neck: Supple. No JVD. No masses. Central trachea. Chest: Clear to auscultation. No wheezing. No rales. Abdomen: Soft. Mild tenderness to palpation at the level of the epigastric area. No hepatosplenomegaly. Extremities: No edema, no clubbing, no cyanosis. Neurological: The patient is alert she is oriented. Her answers are slow but appropriate. She is complaining of headache, no double vision. LABORATORY: Sodium 130, potassium 3.9, chloride 92, bicarbonate 25, BUN 23, creatinine 1.6, glucose 239, calcium 9.4. ASSESSMENT AND PLAN: 1. Metabolic encephalopathy, multifactorial, resolved. We have a couple CT scans of the head have been negative. 2. Uncontrolled type 2 diabetes with a hemoglobin A1c of 10.5. Continue with Lantus, which I will increase to 35. 3. Acute kidney injury on chronic kidney disease, a BUN and creatinine are trending up again, I have restarted her losartan/ hydrochlorothiazide 3 days ago, probably we need to stop the hydrochlorothiazide, and put her on a low dose of NATHALIE inhibitors or arbs upon discharge. She does have heart failure, systolic. She is already on beta blockers and statin. 4. Congestive heart failure without exacerbation, ejection fraction 40 to 45 percent, continue with the same management. Hopefully we will discharge this patient with a low dose of NATHALIE inhibitors or arbs, she has been on losartan/ hydrochlorothiazide, but her kidney function is getting worse, so probably we need to stop the hydrochlorothiazide, and continue only with the arbs. 5. Dyslipidemia, continue with statins. 6. Left upper extremity weakness upon admission, resolved. 7. Hypertensive emergency, resolved. 8. Severe sleep apnea continue with the CPAP machine. cc: Cristiano Carrasco MD
[2019-08-13] MEDS: LEVAQUIN 500 MG/D5W 500 MG/100 ML IVPB IV SCH (17:43)
[2019-08-13] MEDS: LANTUS INSULIN SUBQ SCH (22:56)
[2019-08-13] MEDS: CRESTOR PO SCH (22:58)
[2019-08-14] MEDS: APRESOLINE PO SCH ×3 (05:46→21:07)
[2019-08-14] MEDS: HUMULIN R SUBQ SCH ×4 (06:43→21:08)
[2019-08-14 06:51] LABS: BASO# 0.02 X1000 (0.0-0.2); BASO% 0.3 % (0.0-0.8); EOS# 0.11 X1000 (0.0-0.7); EOS% 1.7 % (0.0-10.0); HEMOGLOBIN 12.2 g/dL (12.0-16.0); IMM GRAN# 0.03 X1000 (0.0-0.04); IMM GRAN% 0.5 % (0.0-0.5); LYMPH# 1.59 X1000 (1.2-3.4); LYMPH% 24.9 % (20.5-51.1); MCH 26.8 PG (27-31); MCHC 32.1 g/dL (33-37); MCV 83.3 FL (81-99); MONO# 0.67 X1000 (0.11-0.59); MONO% 10.5 % (1.7-9.3); MPV 9.1 FL (7.4-10.4); NEUT# 3.97 X1000 (1.4-6.5); NEUT% 62.1 % (42.2-75.2); PLT 328 X1000 (130-400); RBC 4.56 XMIL (4.2-5.4); RDW 14.1 % (11.5-14.5); WBC 6.39 X1000 (4.8-10.8)
[2019-08-14 07:23] LABS: CALCIUM 9.1 mg/dL (8.8-10.2); CREATININE 1.9 mg/dL (0.5-0.9); PHOSPHORUS 3.2 mg/dL (2.7-4.5); POTASSIUM 3.9 mmol/L (3.5-5.1)
[2019-08-14] MEDS: COREG PO SCH ×2 (08:57→21:07)
[2019-08-14] MEDS: NORVASC PO SCH ×2 (08:57→21:07)
[2019-08-14] MEDS: GRALISE PO SCH (08:57)
[2019-08-14] MEDS: HEPARIN SUBQ SCH ×2 (08:57→21:08)
[2019-08-14] MEDS: ULORIC PO SCH (08:57)
[2019-08-14] MEDS: AMARYL PO SCH (08:57)
--- NOTE | 2019-08-14 09:35 | PROGRESS NOTE ---
DATE: 08/14/2019 SUBJECTIVE: Ms. Benitez is a 64-year-old. She has no primary care physician. Presented with encephalopathy, right upper extremity cramping and weakness. She states that her right hand is much better. She is alert and oriented x3 now. OBJECTIVE: Vital Signs: Temp 98.4 degrees, pulse 85, respirations 16, blood pressure 123/67. HEENT: Pupils are equal and round. Lungs: Clear in all lung adams. Cardiovascular: Regular rhythm and rate without murmur or S3. Abdomen: Soft. Skin: Warm and dry. Urine output was 3100 mL. Blood sugars 240, 272, 235. ASSESSMENT AND PLAN: 1. Metabolic encephalopathy, multifactorial, it is resolved. She has had a couple CTs of her head, and they are all negative. 2. Uncontrolled diabetes. Hemoglobin A1c was 10.5. Continue Lantus, increase to 35, and she may need to be on 70/30, and may start that as well. 3. Acute kidney injury on chronic kidney disease. BUN and creatinine are trending up again. Started her on losartan and hydrochlorothiazide 3 days ago. Will stop the hydrochlorothiazide, put her on low dose of angiotensin-converting enzyme inhibitor. 4. Congestive heart failure exacerbation. Ejection fraction is 40% to 45%. She has congestive heart failure with mildly reduced ejection fraction. Hope to get the patient on low-dose angiotensin-converting enzyme inhibitor. 5. Dyslipidemia, on statins. 6. Right upper extremity hand weakness on admission, and cramping. This is resolved. 7. Hypertensive emergency, which resolved. Blood pressure under better control. REVIEW OF ORDERS: Looking over orders, she is on Lantus insulin 35 units at bedtime, and I think she would benefit from 70/30 twice a day, so will try that. cc: Manohar Chavez MD
[2019-08-14] MEDS: LEVAQUIN 500 MG/D5W 500 MG/100 ML IVPB IV SCH (18:32)
[2019-08-14] MEDS: CRESTOR PO SCH (21:07)
[2019-08-14] MEDS: HUMULIN 70/30 SUBQ SCH (21:08)
[2019-08-14] MEDS: LANTUS INSULIN SUBQ SCH (21:09)
[2019-08-15] MEDS: APRESOLINE PO SCH ×3 (06:38→21:15)
[2019-08-15] MEDS: HUMULIN R SUBQ SCH ×4 (06:38→21:16)
[2019-08-15] MEDS: AMARYL PO SCH (09:39)
[2019-08-15] MEDS: NORVASC PO SCH ×2 (09:39→21:15)
[2019-08-15] MEDS: ULORIC PO SCH (09:39)
[2019-08-15] MEDS: HEPARIN SUBQ SCH ×2 (09:39→21:15)
[2019-08-15] MEDS: GRALISE PO SCH (09:40)
[2019-08-15] MEDS: COREG PO SCH ×2 (09:40→21:15)
[2019-08-15] MEDS: HUMULIN 70/30 SUBQ SCH ×2 (09:40→21:16)
[2019-08-15] MEDS ORDERED: MILK OF MAGNESIA PO ONE (09:48)
[2019-08-15] MEDS ORDERED: DULCOLAX PR ONE (09:49)
[2019-08-15] MEDS: MIRALAX PO SCH (10:31)
--- NOTE | 2019-08-15 15:43 | PROGRESS NOTE ---
DATE: 08/15/2019 SUBJECTIVE: Ms. Benitez says she is feeling better. She is still pretty weak. I would like to do a little walking around, but overall is eating. Her bowels have not moved yet. OBJECTIVE: Vital signs: Temp 98.5 degrees, pulse 78, respirations 20, blood pressure 137/72. HEENT: Pupils are equal and round. Lungs: Clear in all lung adams. Cardiovascular: Regular rhythm and rate without murmur or S3. Abdomen: Soft. Skin: Warm and dry. Urine output was 4700 mL. ASSESSMENT AND PLAN: 1. Metabolic encephalopathy, multifactorial. This has resolved. Had a couple CTs of her head on this admission, they were negative. 2. Uncontrolled diabetes. Sugars appear to be doing much better and they are in the low 200s. We will continue her present insulin. 3. Acute kidney injury on top of chronic kidney injury. Her chemistries, last creatinine was 1.9 and I think we will check it again tomorrow. 4. Congestive heart failure, ejection fraction 40 to 45%. Appears to be well compensated. Mildly reduced ejection fraction. She is on low-dose angiotensin inhibitor. 5. Dyslipidemia. On statins. 6. Right upper extremity hand weakness on the right with cramping. 7. Hypertensive emergency on admission. Blood pressure well controlled. REVIEW OF MEDICATION: She did receive the Pneumovax 23 Valent. She is on Lantus insulin 35 units at bedtime and she is on 70/30 Humulin 12 units twice a day. She takes Crestor 20 mg a day, hydralazine 25 mg p.o. q.8 hours, Coreg 6.25 mg b.i.d., Uloric 40 mg a day, vitamin D2 19440 units daily. She is on low-dose heparin at 5000 units subcu q.12 for DVT prophylaxis. Getting Levaquin 500 mg IV q.24 hours, MiraLAX 17 g daily, and losartan Hyzaar combination 1 a day. Hopefully can be discharged tomorrow. She has physical therapy and occupational therapy involved. cc: Manohar Chavez MD
[2019-08-15] MEDS: LEVAQUIN PO SCH ×2 (15:59→17:19)
[2019-08-15] MEDS: CRESTOR PO SCH (21:15)
[2019-08-15] MEDS: LANTUS INSULIN SUBQ SCH (21:16)
[2019-08-15] MEDS ORDERED: INSULIN PEN NEEDLES ONE (21:21)
[2019-08-16] MEDS: HUMULIN R SUBQ SCH ×2 (06:27→10:59)
[2019-08-16] MEDS: APRESOLINE PO SCH ×2 (06:43→12:34)
[2019-08-16] MEDS: AMARYL PO SCH ×2 (07:45→09:48)
[2019-08-16] MEDS: HUMULIN 70/30 SUBQ SCH ×2 (07:46→09:49)
[2019-08-16] MEDS: NORVASC PO SCH ×2 (07:46→09:49)
[2019-08-16] MEDS: GRALISE PO SCH ×2 (07:46→09:49)
[2019-08-16] MEDS: COREG PO SCH ×2 (07:46→09:48)
[2019-08-16] MEDS: HEPARIN SUBQ SCH ×2 (07:46→09:49)
[2019-08-16] MEDS: MIRALAX PO SCH ×2 (07:47→09:49)
[2019-08-16] MEDS: ULORIC PO SCH ×2 (07:47→09:48)
[2019-08-16 09:16] LABS: CREATININE 1.5 mg/dL (0.5-0.9); POTASSIUM 4.4 mmol/L (3.5-5.1)
[2019-08-16 11:52] VITALS: BP 125/68
--- NOTE | 2019-08-16 12:47 | DISCHARGE SUMMARY ---
ADMISSION DATE: 08/08/2019 DISCHARGE DATE: 08/16/2019 HISTORY OF PRESENT ILLNESS: The patient came in with encephalopathy, right upper extremity weakness. This is a 64-year-old female with a past medical history of uncontrolled hypertension, hyperlipidemia, diabetes mellitus type 2, noncompliance, morbid obesity who presented to the emergency department with some signs of encephalopathy, confusion, right upper extremity weakness and some slurred speech. All history was taken from the at the bedside. The patient was not able to provide information in the emergency room. According to the patient's , everything started about 2 days ago during the night. Apparently, she started having some somnolence, slurred speech, and right upper extremity weakness, which resolved overnight. They decided to come into the emergency department yesterday. Apparently, she was evaluated for headache. Blood pressure was evaluated, report was 235/138, and she received treatment. Apparently, she was feeling better and they discharged the patient home. As per the , she started having the same kind of symptoms the day of admission, decided to come back and bring her back again. The day before CT scan without contrast did not show any acute intracranial process. Her blood pressure was still elevated and systolic in the 200s. Heart rate normal limits. Oxygen saturation was good. Labs showed acute kidney injury. Blood sugars were 647. She had run out of her medications, unable to afford them for her blood sugar. The doctor had a tracey conversation with her about her medication, saying that she needs to take her medication. The first set of were negative, and they admitted her for further evaluation. ADMISSION DIAGNOSES: 1. Metabolic encephalopathy, multifactorial. She was complaining of some right hand tingling and numbness and had some speech difficulty. X-ray showed some atelectasis, but did not see definite infiltrate. Did not have clinical signs of pneumonia. 2. Uncontrolled diabetes mellitus type 2 with hyperglycemia. Put her on a sliding scale. Put her back on her medicines. Sugars came down. 3. Uncontrolled hypertension. Put her on medications and blood pressure was well controlled. 4. Acute kidney injury on presentation. Her creatinine when she presented was 1.6. With some hydration and sugar control, creatinine actually came down to 1. HOSPITAL COURSE: Electrolytes look good. She felt better. CT of the head was repeated on 08/08/2019, stable, minimal chronic appearing white matter changes. No definite acute intracranial pathology seen, and blood pressures remained under good control. Physical therapy was started. She was walking, ambulating well. Blood pressures, her last 3 numbers were 139/86, 151/82, 136/79. She wanted to go home. Neurologically intact and no further confusion. DISCHARGE MEDICATIONS: We will discharge her on Norvasc 5 mg twice a day, Coreg 6.25 mg p.o. twice a day, vitamin D 50,000 units p.o. every week, Uloric 40 mg a day, gabapentin 300 mg a day, Amaryl 2 mg every night at bedtime, Hyzaar 100/12.5 once a day, and Apresoline 25 mg 3 times a day, Lantus insulin 35 units subcutaneously every night at bedtime, 70/30 at 12 units twice a day. We had her on Levaquin 500 mg daily. We stopped that, we did not see any definite infection. She will be on MiraLAX 17 grams daily and Crestor 20 mg a day. DISCHARGE INSTRUCTIONS: She is to follow up with her primary care physician. I do not know that she has one at this time, but she needs to get a primary care physician. I got her medications ready and encouraged weight reduction and compliance to checking her blood sugars. cc: Manohar Chavez MD
== END 2019-08-16 13:29 | disposition home or self-care (01) | DRG 637 ==
LOC: SUPCPDRO → ED 16:41 → SUATTDRO 20:07 → ICU 20:07 → 4N 08-10 11:23
PROVIDERS: ATTEND Emergency Medicine